=== PATIENT | male | born 2000 | race African-American/Black ===

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

== ENCOUNTER 2023-03-05 16:21 | Emergency (ER) | payer SELFPAY ==
[2023-03-05 16:41] VITALS: BP 110/62; PULSE 65; RESP 18; TEMP 98.1; BMI 29.2
== END 2023-03-05 17:15 | disposition home or self-care (01) ==
LOC: FER 16:21
DX: T16.2XXA Foreign body in left ear, initial encounter (principal)
CPT/HCPCS: 99282-25

== ENCOUNTER 2023-07-24 04:15 | Emergency (ER) | payer OTHER ==
[2023-07-24 04:29] VITALS: BP 135/73; PULSE 71; RESP 16; TEMP 98.8; BMI 32.1
== END 2023-07-24 04:54 | disposition home or self-care (01) ==
LOC: FER 04:15
PROC: 0HQGXZZ Repair Left Hand Skin, External Approach (ICD-10-PCS; principal; 2023-07-24)
DX: S61.012A Laceration without foreign body of left thumb without damage to nail, initial encounter (principal); X58.XXXA Exposure to other specified factors, initial encounter
CPT/HCPCS: 99282-25